=== PATIENT | male | born 1975 | race Caucasian/White ===

== ENCOUNTER 2024-05-04 11:55 | Emergency (ER) | payer SELFPAY ==
[2024-05-04 12:24] VITALS: BP 171/98; PULSE 56; TEMP 36.6; O2SAT 98; BMI 34.2
--- NOTE | 2024-05-04 12:46 | CT_ITS ---
[address] [address] Patient Name: VIKRAM PAULA MRN: [id number] date: 1975 Sex: M Assigned Patient Location: ER Current Patient Location: Accession/Order Number: [id number] Exam Date: 05/04/2024 13:30 Report Date: 05/04/2024 13:57 At the request of: BERYL THOMAS Procedure: CT abdomen pelvis wo con EXAMINATION: CT abdomen pelvis wo con HISTORY: RLQ pain and flank pain COMPARISON: No relevant comparison available. TECHNIQUE: Axial, Coronal, and Sagittal images were obtained without and/or with IV contrast as indicated by examination type. Dose reduction techniques were achieved by using automated exposure control and/or adjustment of mA and/or kV according to patient size and/or use of iterative reconstruction technique. FINDINGS: LUNG BASES: No visible pulmonary or pleural disease. LIVER: Small rounded hypodensity within right hepatic dome favoring a cyst or hemangioma. No enlargement, atrophy, suspicious density, or significant focal lesion. BILIARY: Several large stones within the noninflamed gallbladder. PANCREAS: No lesion, fluid collection, or abnormal duct dilatation. SPLEEN: No enlargement or focal lesion. ADRENALS: No mass or enlargement. KIDNEYS: Mild right hydronephrosis and hydroureter secondary to a 4 mm obstructing stone at the ureterovesical junction. No additional urinary tract calculi. Small cysts along lateral mid body of right kidney. BOWEL/MESENTERY: No visible mass, obstruction, or bowel wall thickening. AORTA/VASCULAR: No aneurysm or dissection. RETROPERITONEUM: No mass or adenopathy. LYMPH NODES: No adenopathy. URINARY BLADDER: No visible focal wall thickening, lesion, or calculus. PELVIC ORGANS: No visible mass. Pelvic organs appropriate for patient age. ABDOMINAL WALL: No mass or hernia. BONES: No bony lesion or fracture. OTHER: Negative. CT/CT abdomen pelvis wo con IMPRESSION: 1. Mild right hydronephrosis secondary to an obstructing 4 mm stone within distal ureter at the ureterovesical junction. 2. No additional urinary tract calculi. 3. Cholelithiasis. Electronically authenticated by: BRO EPPERSON Date: 05/04/2024 13:57
[2024-05-04] MEDS: KETOROLAC TROMETHAMINE 30 MG/ML VIAL 15 MG IVP (13:05)
[2024-05-04] MEDS: ONDANSETRON PF 4 MG/2 ML VIAL IV (13:06)
[2024-05-04 13:09] LABS: Basophils Absolute Auto 0.1 10^3/uL (0.0-0.1); Basophils Percent Auto 0.6 % (0.2-2.0); Eosinophils Absolute Auto 0.2 10^3/uL (0.0-0.7); Eosinophils Percent Auto 1.7 % (0.9-7.0); Hematocrit 45.3 % (42.0-54.0); Hemoglobin 15.8 g/dL (14.0-18.0); Immature Granulocytes Abs Auto 0.05 10^3/uL (0.00-0.03); Immature Granulocytes Pct Auto 0.4 % (0.0-0.5); Lymphocytes Absolute Auto 1.6 10^3/uL (1.2-3.8); Lymphocytes Percent Auto 12.8 % (20.5-60.0); Mean Corpuscular HGB Conc 34.9 g/dL (29.9-35.2); Mean Corpuscular Hemoglobin 30.3 pg (25.9-34.0); Mean Corpuscular Volume 86.8 fL (80.0-94.0); Mean Platelet Volume 9.4 fL (9.5-13.5); Monocytes Absolute Auto 0.8 10^3/uL (0.3-0.8); Monocytes Percent Auto 6.6 % (1.7-12.0); Neutrophils Absolute Auto 9.8 10^3/uL (1.4-6.5); Neutrophils Percent Auto 77.9 % (43.0-75.0); Platelet Count 234 10^3/uL (150-450); Red Blood Count 5.22 10^6/uL (4.70-6.10); Red Cell Distribution Width 12.2 % (11.0-15.0); White Blood Count 12.6 10^3/uL (4.0-11.0)
[2024-05-04 13:22] LABS: Alanine Aminotransferase 25 U/L (16-63); Albumin Globulin Ratio 1.3; Albumin Level 3.9 g/dL (3.4-5.0); Alkaline Phosphatase 65 U/L (46-116); Anion Gap 15.4; Aspartate Amino Transferase 14 U/L (15-37); BUN Creatinine Ratio 11.2; Bilirubin Total 0.9 mg/dL (0.2-1.0); Carbon Dioxide 24.4 mmol/L (21.0-32.0); Chloride 105 mmol/L (98-107); Estimated GFR (African America >60 (>=60 mL/min/1.73m^2); Estimated GFR (Non-African Ame 53 (>=60 mL/min/1.73m^2); Globulin 3.1 g/dL; Glucose 109 mg/dL (74-106); Potassium 3.8 mmol/L (3.5-5.1); Sodium 141 mmol/L (136-145)
[2024-05-04] MEDS: 0.9 % SODIUM CHLORIDE 1,000 ML 1000 ML IV (14:08)
[2024-05-04 14:12] VITALS: BP 138/86; PULSE 54; O2SAT 97
[2024-05-04 14:52] LABS: Bilirubin Urine NEGATIVE (NEGATIVE); Blood Urine MODERATE (NEGATIVE); Clarity Urine CLEAR (CLEAR); Color Urine YELLOW (YELLOW); Glucose Urine UA NEGATIVE (NEGATIVE); Ketones Urine >=80 mg/dL (NEGATIVE); Leukocyte Esterase Urine NEGATIVE (NEGATIVE); Nitrite Urine NEGATIVE (NEGATIVE); Protein Urine NEGATIVE (NEG/TRACE); Specific Gravity Urine 1.025 (1.005-1.025)
[2024-05-04 14:58] LABS: Urine Microscopic Indicated YES
[2024-05-04 15:05] LABS: Bacteria Urine NONE SEEN #/HPF (NONE SEEN); Crystals Seen? None Seen #/HPF (None Seen); Mucus Urine NONE SEEN (NONE SEEN); Squamous Epithelial Cell Urine NONE SEEN #/LPF (NONE/RARE); WBC Urine 0-2 #/HPF (NONE SEEN)
[2024-05-04 15:06] LABS: Cast Seen? SEEN #/LPF (NONE SEEN); Hyaline Casts Urine RARE; Urine Culture Indicated NO
--- NOTE | 2024-05-04 15:08 | ED_ITS ---
HPI - Abdominal Pain General Chief Complaint: Abdominal Pain Stated Complaint: ABDOMINAL PAIN Time Seen by Provider: 05/04/24 12:33 Source: patient Mode of arrival: walk-in Limitations: no limitations History of Present Illness HPI narrative: The patient is coming to the ER with right flank pain that started this morning, associated with some pain radiating down his right lower quadrant He also have some nausea no vomiting he denies any fever chills or any burning with urination Related Data Previous Rx's ?Medication ?Instructions ?Recorded cephalexin 500 mg capsule 500 mg PO Q8H 7 days #21 caps 05/04/24 tamsulosin 0.4 mg capsule (Flomax) 0.4 mg PO DAILY #10 caps 05/04/24 tramadol 50 mg tablet 50 mg PO Q8H PRN pain 3 days #9 05/04/24 tabs Allergies Allergy/AdvReac Type Severity Reaction Status Date / Time No Known Drug Allergies Allergy Verified 05/04/24 12:24 Review of Systems ROS Status of ROS 10 or more systems reviewed and unremark able except as noted in history and below PFSH PFSH Social History Little interest or pleasure in doing things: not at all Feeling down, depressed, or hopeless: not at all Exam Narrative Exam Narrative: Nurses notes and vital signs reviewed and patient is not hypoxic. General: Well-appearing and in no apparent distress. Skin: Warm, dry, no pallor noted. No rash. Head: Normocephalic, atraumatic. Neck: Supple, non-tender. Eye: Pupils are equal, round and EOMI. No scleral icterus. Ears, Nose, Mouth, and Throat: TM are clear, no nasal mucosal hypertrophy. Oral mucosa is moist, no posterior oropharynx erythema, uvula is mid-line Cardiovascular: Regular Rate and Rhythm without murmur, gallop or rub. Respiratory: No accessory muscle use or respiratory distress. Lungs are clear to auscultation, no wheezing, rales or rhonchi Chest Wall: no tenderness Back: No midline thoracic or lumbar vertebral tenderness. Right CVA tenderness Musculoskeletal: normal ROM, no calf or popliteal tenderness, no lower extremity edema/swelling GI: Abdomen is soft, non-distended. Normal bowel sounds. No masses appreciated. No tenderness to palpation. No rebound, guarding, or rigidity noted. Neurological: A&O x4. No cranial nerve dysfunction observed. No truncal ataxia. Moves all extremities. Sensation intact. Psychiatric: Cooperative and interactive. Normal mood and affect. Constitutional Vital Signs, click to edit/add: Last Vital Signs Temp 98 F 05/04/24 12:24 Pulse 54 L 05/04/24 14:12 Resp 16 05/04/24 14:12 BP 138/86 05/04/24 14:12 Pulse Ox 97 05/04/24 14:12 O2 Del Method Room Air 05/04/24 14:12 Course Vital Signs Vital signs: Vital Signs Temperature 98 F 05/04/24 12:24 Pulse Rate 56 L 05/04/24 12:24 Respiratory Rate 18 05/04/24 12:24 Blood Pressure 171/98 H 05/04/24 12:24 Pulse Oximetry 98 05/04/24 12:24 Oxygen Delivery Method Room Air 05/04/24 12:24 Temperature 98 F 05/04/24 12:24 Pulse Rate 54 L 05/04/24 14:12 Respiratory Rate 16 05/04/24 14:12 Blood Pressure 138/86 05/04/24 14:12 Pulse Oximetry 97 05/04/24 14:12 Oxygen Delivery Method Room Air 05/04/24 14:12 MDM - Abdominal Pain MDM Narrative Medical decision making narrative: The patient CBC shows white blood cell of 12 with urinalysis showing UTI Chemistry shows mild acute kidney injury with no previous blood workup for comparison The patient was provided with IV fluids and pain medication after which he was feeling much better Patient CAT scan shows mild hydronephrosis on the right side with a 4 mm stone that is in the distal ureter The patient right now with no history of infection he will be covered with Keflex as a prophylaxis in addition to Flomax provided hydration instruction to monitor for any fever or pain in addition to be provided with a strainer Patient referred to urology as outpatient he was instructed to come back in case of any fever or any abdominal pain and it is very important that he follow-up with urology The patient is to follow up with primary care physician in next 2-3 days or to return to the emergency department should any of the signs or symptoms worsen or new symptoms develop. The patient agrees with the following Diagnosis and Treatment plan and the patient will be discharged home. Lab Data Labs: Lab Results 05/04/24 05/04/24 Range/Units 13:03 14:30 WBC 12.6 H (4.0-11.0) 10^3/uL RBC 5.22 (4.70-6.10) 10^6/uL Hgb 15.8 (14.0-18.0) g/dL Hct 45.3 (42.0-54.0) % MCV 86.8 (80.0-94.0) fL MCH 30.3 (25.9-34.0) pg MCHC 34.9 (29.9-35.2) g/dL RDW 12.2 (11.0-15.0) % Plt Count 234 (150-450) 10^3/uL MPV 9.4 L (9.5-13.5) fL Neut % (Auto) 77.9 H (43.0-75.0) % Lymph % (Auto) 12.8 L (20.5-60.0) % [place] % (Auto) 6.6 (1.7-12.0) % Eos % (Auto) 1.7 (0.9-7.0) % Baso % (Auto) 0.6 (0.2-2.0) % Neut # (Auto) 9.8 H (1.4-6.5) 10^3/uL Lymph # (Auto) 1.6 (1.2-3.8) 10^3/uL [place] # (Auto) 0.8 (0.3-0.8) 10^3/uL Eos # (Auto) 0.2 (0.0-0.7) 10^3/uL Baso # (Auto) 0.1 (0.0-0.1) 10^3/uL Abs Immat Gran (auto) 0.05 H (0.00-0.03) 10^3/uL Imm/Tot Granulo (auto) 0.4 (0.0-0.5) % Sodium 141 (136-145) mmol/L Potassium 3.8 (3.5-5.1) mmol/L Chloride 105 (98-107) mmol/L Carbon Dioxide 24.4 (21.0-32.0) mmol/L Anion Gap 15.4 BUN 16.0 (7.0-18.0) mg/dL Creatinine 1.43 H (0.70-1.30) mg/dL Est GFR ( Amer) >60 (>=60 mL/min/1.73m^2) Est GFR (Non-Af Amer) 53 L (>=60 mL/min/1.73m^2) BUN/Creatinine Ratio 11.2 Glucose 109 H (74-106) mg/dL Calcium 9.0 (8.5-10.1) mg/dL Total Bilirubin 0.9 (0.2-1.0) mg/dL AST 14 L (15-37) U/L ALT 25 (16-63) U/L Alkaline Phosphatase 65 (46-116) U/L Total Protein 7.0 (6.4-8.2) g/dL Albumin 3.9 (3.4-5.0) g/dL Globulin 3.1 g/dL Albumin/Globulin Ratio 1.3 Urine Color Yellow (YELLOW) Urine Clarity Clear (CLEAR) Urine pH 6.0 (5.0-9.0) Ur Specific [place] 1.025 (1.005-1.025) Urine Protein Negative (NEG/TRACE) mg/dL Urine Glucose (UA) Negative (NEGATIVE) mg/dL Urine Ketones >=80 A (NEGATIVE) mg/dL Urine Occult Blood Moderate A (NEGATIVE) Urine Nitrite Negative (NEGATIVE) Urine Bilirubin Negative (NEGATIVE) Urine Urobilinogen 1.0 (0.2-1.0) EU/dL Ur Leukocyte Esterase Negative (NEGATIVE) Urine RBC 5-10 A (0-2) #/HPF Urine WBC 0-2 A (NONE SEEN) #/HPF Ur Squamous Epith Cells None seen (NONE/RARE) #/LPF Urine Crystals None seen (None Seen) #/HPF Urine Bacteria None seen (NONE SEEN) #/HPF Urine Casts Seen A (NONE SEEN) #/LPF Hyaline Casts Rare Urine Mucus None seen (NONE SEEN) Ur Culture Indicated? No Discharge Plan Discharge Chief Complaint: Abdominal Pain Clinical Impression: Kidney calculus, BERNARD (acute kidney injury), Hydronephrosis Patient Disposition: Home, Self-Care Time of Disposition Decision: 15:18 Condition: Good Prescriptions / Home Meds: New tamsulosin [Flomax] 0.4 mg capsule 0.4 mg PO DAILY Qty: 10 0RF cephalexin 500 mg capsule 500 mg PO Q8H 7 Days Qty: 21 0RF tramadol 50 mg tablet 50 mg PO Q8H PRN (Reason: pain) 3 Days Qty: 9 0RF Print Language: Tamazight Instructions: Acute Kidney Injury (DC), Kidney Stones (ED), Hydronephrosis (ED) Referrals: Physician,Non-Staff, [Primary Care Provider] - 1 week Mariusz Rajan MD [Physician] - As soon as possible
[2024-05-04 15:40] VITALS: BP 132/86; PULSE 68; O2SAT 97
== END 2024-05-04 15:40 | disposition home or self-care (01) ==
PROVIDERS: Emergency Provider Emergency Medicine; Family Provider Emergency Medicine Hospice and Palliative Medicine
DX: N13.2 Hydronephrosis with renal and ureteral calculous obstruction (principal); N17.9 Acute kidney failure, unspecified
CPT/HCPCS: 36415; 74176; 80053; 81001; 85025; 96361; 96374; 96375; 99285; J1885; J2405